=== PATIENT | male | born 1985 | race Caucasian/White ===

== ENCOUNTER 2019-10-01 09:24 | Emergency (ER) | payer OTHER ==
[~2019-10-01] VITALS: Ht 177.8 cm; Wt 99.8 kg
[2019-10-01 09:29] VITALS: BP 134/81
== END 2019-10-01 09:55 | disposition home or self-care (01) ==
LOC: ER 09:28
DX: Z03.818 Encounter for observation for suspected exposure to other biological agents ruled out (principal)
CPT/HCPCS: 99283; U0003

== ENCOUNTER 2019-10-24 14:44 | Emergency (ER) | payer OTHER ==
[~2019-10-24] VITALS: Ht 185.4 cm; Wt 95.3 kg
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
--- NOTE | 2019-10-24 16:33 | NUR ---
Patient discharged to home in stable condition. Written and verbal after care instructions given. Patient verbalizes understanding of instruction.
[2019-10-24 16:35] VITALS: BP 135/80
== END 2019-10-24 16:35 | disposition home or self-care (01) ==
LOC: ER 14:44
DX: S60.111A Contusion of right thumb with damage to nail, initial encounter (principal); W23.0XXA Caught, crushed, jammed, or pinched between moving objects, initial encounter; Y93.89 Activity, other specified; Y92.89 Other specified places as the place of occurrence of the external cause; Y99.8 Other external cause status
CPT/HCPCS: 73140-TC

== ENCOUNTER 2019-10-29 13:39 | Emergency (ER) | payer OTHER ==
[~2019-10-29] VITALS: Ht 185.4 cm; Wt 93.0 kg
[2019-10-29 13:49] VITALS: BP 111/82
--- NOTE | 2019-10-29 14:30 | NUR ---
Patient discharged to home in stable condition. Written and verbal after care instructions given. Patient verbalizes understanding of instruction.
== END 2019-10-29 14:30 | disposition home or self-care (01) ==
LOC: ER 13:43
DX: Z03.818 Encounter for observation for suspected exposure to other biological agents ruled out (principal)
CPT/HCPCS: 99283; C9803; U0003

== ENCOUNTER 2019-11-18 09:49 | Emergency (ER) | payer OTHER ==
[~2019-11-18] VITALS: Ht 177.8 cm; Wt 86.2 kg
[2019-11-18 09:53] VITALS: BP 130/88
--- NOTE | 2019-11-18 10:11 | NUR ---
Patient discharged to home in stable condition. Written and verbal after care instructions given. Patient verbalizes understanding of instruction.
== END 2019-11-18 10:11 | disposition home or self-care (01) ==
LOC: ER 09:50
DX: Z11.59 Encounter for screening for other viral diseases (principal)
CPT/HCPCS: 99283; C9803; U0003

== ENCOUNTER 2019-11-26 13:08 | Emergency (ER) | payer OTHER ==
[~2019-11-26] VITALS: Ht 185.4 cm; Wt 92.1 kg
[2019-11-26 13:18] VITALS: BP 135/81
--- NOTE | 2019-11-26 13:26 | NUR ---
Patient discharged to home in stable condition. Written and verbal after care instructions given. Patient verbalizes understanding of instruction.
== END 2019-11-26 13:26 | disposition home or self-care (01) ==
LOC: ER 13:19
DX: Z11.59 Encounter for screening for other viral diseases (principal)
CPT/HCPCS: 99283; C9803; U0003

== ENCOUNTER 2019-12-13 08:59 | Emergency (ER) | payer OTHER ==
[~2019-12-13] VITALS: Ht 182.9 cm; Wt 86.2 kg
[2019-12-13 09:02] VITALS: BP 128/67
--- NOTE | 2019-12-13 09:40 | NUR ---
Patient discharged to home in stable condition. Written and verbal after care instructions given. Patient verbalizes understanding of instruction.
== END 2019-12-13 09:41 | disposition home or self-care (01) ==
LOC: ER 09:04
DX: Z20.828 Contact with and (suspected) exposure to other viral communicable diseases (principal)
CPT/HCPCS: 99283; C9803; U0003

== ENCOUNTER 2020-03-18 10:55 | Emergency (ER) | payer OTHER ==
[~2020-03-18] VITALS: Ht 185.4 cm; Wt 93.0 kg
[2020-03-18 10:55] VITALS: BP 129/91
--- NOTE | 2020-03-18 12:12 | NUR ---
COVID SWAB SENT. Patient discharged to home in stable condition. Written and verbal after care instructions given. Patient verbalizes understanding of instruction.
== END 2020-03-18 12:13 | disposition home or self-care (01) ==
LOC: ER 10:56
DX: Z20.828 Contact with and (suspected) exposure to other viral communicable diseases (principal)
CPT/HCPCS: 99283; C9803; U0003

== ENCOUNTER 2021-04-20 07:05 | Emergency (ER) | payer OTHER ==
[~2021-04-20] VITALS: Ht 185.4 cm; Wt 95.3 kg
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
--- NOTE | 2021-04-20 07:31 | NUR ---
covid swab done and sent to the lab
--- NOTE | 2021-04-20 08:40 | NUR ---
The patient is alert and oriented x4. Denies pain. In room air and denies SOB. Respiration regular and unlabored. The patient is made aware of covid swab result. Patient discharged to home in stable condition. Written and verbal after care instructions given. Patient verbalizes understanding of instruction.
[2021-04-20 08:41] VITALS: BP 123/84
== END 2021-04-20 08:41 | disposition home or self-care (01) ==
LOC: ER 07:06
DX: J06.9 Acute upper respiratory infection, unspecified (principal); Z20.822 Contact with and (suspected) exposure to COVID-19
CPT/HCPCS: 87426; 99283; C9803

== ENCOUNTER 2021-05-06 13:45 | Emergency (ER) | payer OTHER ==
[~2021-05-06] VITALS: Ht 185.4 cm; Wt 99.8 kg
[2021-05-06 14:03] VITALS: BP_SYST 104
--- NOTE | 2021-05-06 14:03 | NUR ---
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 AFEBRILE 98.0 TODAY NEEDS PCR TO GET BACK TO WORK, AUTORIZED BY [employer]
== END 2021-05-06 17:07 | disposition home or self-care (01) ==
LOC: ER 13:45
DX: J02.9 Acute pharyngitis, unspecified (principal); U07.1 COVID-19
CPT/HCPCS: 99283; C9803; U0003

== ENCOUNTER 2021-12-02 12:59 | Emergency (ER) | payer BC, OTHER ==
[~2021-12-02] VITALS: Ht 193 cm; Wt 99.8 kg
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
--- NOTE | 2021-12-02 14:32 | NUR ---
BACK FROM CT.
--- NOTE | 2021-12-02 15:00 | NUR ---
CONTACTED DR. MÁRQUEZ.
[2021-12-02] MEDS ORDERED: IBUPROFEN 600 MG TABLET ONE (17:58)
[2021-12-02] MEDS ORDERED: HYDROCODONE/APAP 10/325MG TABLET ONE (17:58)
[2021-12-02] MEDS ORDERED: CYCL10TA9 PO (18:00)
[2021-12-02] MEDS ORDERED: HYDROCODONE/APAP 10/325MG TABLET PO ONE (18:00)
[2021-12-02] MEDS ORDERED: IBUP-1955 PO (18:00)
[2021-12-02] MEDS ORDERED: IBUPROFEN 600 MG TABLET PO ONE (18:00)
[2021-12-02 18:05] VITALS: BP 135/77
--- NOTE | 2021-12-02 18:05 | NUR ---
Patient discharged to home in stable condition. Written and verbal after care instructions given. Patient verbalizes understanding of instruction.
== END 2021-12-02 18:06 | disposition home or self-care (01) ==
LOC: ER 13:00
DX: S16.1XXA Strain of muscle, fascia and tendon at neck level, initial encounter (principal); S09.90XA Unspecified injury of head, initial encounter; V49.49XA Driver injured in collision with other motor vehicles in traffic accident, initial encounter; Y93.89 Activity, other specified; Y92.413 State road as the place of occurrence of the external cause; Y99.8 Other external cause status; M79.671 Pain in right foot
CPT/HCPCS: 99284; 72141; 72125; 70450; 72131; 72128; L0172

== ENCOUNTER 2022-10-22 08:37 | Outpatient (CLI) | payer BC, OTHER ==
[~2022-10-22 08:37] MED LIST: CYCL10TA9 PO; IBUP-1955 PO
[2022-10-22 10:02] LABS: BASOPHILS % (AUTO) 0.6 % (0.0-2.0); EOSINOPHILS % (AUTO) 2.4 % (0.0-6.0); HEMATOCRIT 51 % (39-51); HEMOGLOBIN 16.5 g/dL (13.5-17.5); LYMPHOCYTES # (AUTO) 2.4 K/uL (0.8-4.8); LYMPHOCYTES % (AUTO) 30.5 % (20.0-44.0); MEAN CORPUSCULAR HGB CONC 32 g/dl (31.0-36.0); MEAN CORPUSCULAR VOLUME 87 fL (80-96); MONOCYTES # (AUTO) 0.6 K/uL (0.1-1.30); MONOCYTES % (AUTO) 7.7 % (2.0-12.0); NEUTROPHILS # (AUTO) 4.6 K/uL (1.8-8.9); NEUTROPHILS % (AUTO) 58.8 % (43.0-81.0); PLATELET COUNT (AUTO) 210 K/uL (150-450); RED BLOOD CELL COUNT(AUTO) 5.85 MIL/uL (4.5-6.0); WHITE BLOOD COUNT (AUTO) 7.7 K/uL (4.3-11.0)
[2022-10-22 10:16] LABS: THYROID STIMULATING HORMONE 0.916 uIU/mL (0.358-3.74); URIC ACID 6.3 mg/dL (2.6-7.2)
[2022-10-22 10:25] LABS: ALBUMIN 4.2 g/dL (3.4-5.0); BILIRUBIN,TOTAL 0.7 mg/dL (0.2-1.0); CALCIUM, SERUM 9.4 mg/dL (8.5-10.1); CREATININE 1.2 mg/dL (0.6-1.3); POTASSIUM 4.1 mmol/L (3.5-5.1); TOTAL PROTEIN, SERUM 7.7 g/dL (6.4-8.2)
[2022-10-22 10:58] LABS: BILIRUBIN,URINE NEGATIVE (NEGATIVE); COLOR,URINE YELLOW (YELLOW); LEUKOCYTE ESTERASE ,URINE NEGATIVE (NEGATIVE); NITRITE, URINE NEGATIVE (NEGATIVE); PROTEIN,URINE NEGATIVE (NEGATIVE); UGLUCOSE NEGATIVE (NEGATIVE); UROBILINOGEN,URINE 0.2 EU/dL (0.2)
== END 2022-10-22 23:59 | disposition home or self-care (01) ==
LOC: LAB 08:37
PROVIDERS: ATTEND Legal Medicine
DX: Z00.00 Encounter for general adult medical examination without abnormal findings (principal); E11.9 Type 2 diabetes mellitus without complications; E78.00 Pure hypercholesterolemia, unspecified; I10 Essential (primary) hypertension; D64.9 Anemia, unspecified; E55.9 Vitamin D deficiency, unspecified; R53.1 Weakness
CPT/HCPCS: 36415; 80053-TC; 80061-TC; 82306; 82607-TC; 82670; 82728-TC; 83540-TC; 84402; 84403; 84439-TC; 84443-TC; 84550-TC; 85025-TC

== ENCOUNTER 2023-09-01 08:13 | Emergency (ER) | payer BC, OTHER ==
[~2023-09-01] VITALS: Ht 185.4 cm; Wt 99.8 kg
[2023-09-01 08:21] VITALS: BP 137/68; TEMP 98.6
[2023-09-01] MEDS ORDERED: NAPR-1164 PO (09:05)
[2023-09-01 11:13] VITALS: O2SAT 99
== END 2023-09-01 11:14 | disposition home or self-care (01) ==
LOC: ER 08:17
DX: M79.631 Pain in right forearm (principal); M77.8 Other enthesopathies, not elsewhere classified; Z79.899 Other long term (current) drug therapy
CPT/HCPCS: 73090-TC

== ENCOUNTER 2023-10-13 07:47 | Emergency (ER) | payer BC, OTHER ==
[~2023-10-13] VITALS: Ht 185.4 cm; Wt 95.3 kg
[~2023-10-13 07:47] MED LIST changes: +NAPR-1164 PO
[2023-10-13 07:56] VITALS: BP 129/76; TEMP 97.6; O2SAT 99
== END 2023-10-13 08:44 | disposition home or self-care (01) ==
LOC: ER 07:50
DX: M77.01 Medial epicondylitis, right elbow (principal); W22.8XXA Striking against or struck by other objects, initial encounter; Y93.89 Activity, other specified; Y92.89 Other specified places as the place of occurrence of the external cause; Y99.8 Other external cause status

== ENCOUNTER 2024-10-15 11:53 | Emergency (ER) | payer OTHER, BC ==
[~2024-10-15] VITALS: Ht 210.8 cm; Wt 95.3 kg
[2024-10-15 11:55] VITALS: TEMP 98.6
[2024-10-15] MEDS ORDERED: TRAMADOL HCL 50 MG TABLET ONE (12:31)
[2024-10-15] MEDS: TRAMADOL HCL 50 MG TABLET PO ONE (12:33)
[2024-10-15] MEDS ORDERED: TRAM50TA2 PO (13:25)
[2024-10-15 13:40] VITALS: BP 125/80; O2SAT 99
== END 2024-10-15 13:38 | disposition home or self-care (01) ==
LOC: ER 11:59
DX: S60.221A Contusion of right hand, initial encounter (principal); S60.512A Abrasion of left hand, initial encounter; Z79.1 Long term (current) use of non-steroidal anti-inflammatories (NSAID); Z79.899 Other long term (current) drug therapy; V23.49XA Other motorcycle driver injured in collision with car, pick-up truck or van in traffic accident, initial encounter; Y93.89 Activity, other specified; Y92.415 Exit ramp or entrance ramp of street or highway as the place of occurrence of the external cause; Y99.8 Other external cause status
CPT/HCPCS: 29125; 73130; 99283; A6403; L3763